=== PATIENT | male | born 1955 | race Two or more races ===

== ENCOUNTER 2020-05-30 13:35 | Emergency (ER) | payer BC, OTHER ==
[~2020-05-30] VITALS: Ht 172.7 cm; Wt 99.8 kg
[2020-05-30 14:38] LABS: Basophils # (auto) 0 10 ^3/uL (0-0.2); Basophils % (auto) 0.2 % (0.0-2.0); Eosinophils # (auto) 0.1 10 ^3/uL (0-0.8); Eosinophils % (auto) 0.8 % (0.0-7.0); Hematocrit 47.7 % (41.0-53.0); Hemoglobin 16.2 g/dL (13.5-17.5); Lymphocytes # (auto) 0.8 10 ^3/uL (0.4-5.4); Lymphocytes % (auto) 5.6 % (10.0-50.0); Mean Corpuscular Hemoglobin 32.2 pg (28.0-32.0); Mean Corpuscular Hgb Conc. 33.8 g/dL (32.0-36.0); Mean Corpuscular Volume 95.1 fL (80.0-100.0); Monocytes # (auto) 1.1 10 ^3/uL (0-1.3); Monocytes % (auto) 8.3 % (0.0-12.0); Neutrophils # (auto) 11.4 10 ^3/uL (1.6-8.6); Neutrophils % (auto) 85.1 % (37.0-80.0); Nucleated Red Blood Cells % 0.1 %; Platelet Count (auto) 194 10^3/uL (140-450); Red Blood Cells 5.02 10^6/uL (4.5-5.90); Red Cell Distribution Width 14.4 % (11.8-14.3); White Blood Cell 13.4 10^3/uL (4.4-10.8)
[2020-05-30 14:56] LABS: Albumin 3.9 g/dL (3.4-5.0); Anion Gap 6 (5-15); Blood Urea Nitrogen 13 mg/dL (7-18); Calcium 9.2 mg/dL (8.5-10.1); Carbon Dioxide 27 mmol/L (21-32); Chloride 107 mmol/L (98-107); Glucose 109 mg/dL (74-106); Potassium 4.2 mmol/L (3.5-5.1); Sodium 140 mmol/L (136-145)
[2020-05-30 14:58] LABS: BUN/Creatinine Ratio 15.1; GFR African American 115 mL/min; GFR Non-African American 95 mL/min
[2020-05-30 15:04] LABS: Alanine Aminotransferase 22 U/L (16-61); Alkaline Phosphatase 92 U/L (45-117); Aspartate Aminotransferase 11 U/L (15-37); Total Protein 7.9 g/dL (6.4-8.2)
[2020-05-30] MEDS ORDERED: SODIUM CHLORIDE 0.9% 1,000 ML IV ONE (16:00)
[2020-05-30 18:01] VITALS: BP 118/70
== END 2020-05-30 18:15 | disposition home or self-care (01) ==
LOC: ER 13:35 → EDBD 13:35 → ER 18:15
DX: R55 Syncope and collapse (principal); D72.829 Elevated white blood cell count, unspecified; E86.0 Dehydration
CPT/HCPCS: 36415; 70450; 71045; 80053; 84484; 85025; 87426; 93005; 96360; 99285; J7030